=== PATIENT | male | born 1965 | race Caucasian/White ===

== ENCOUNTER 2017-01-06 09:53 | Day surgery (SDC) | payer OTHER ==
[2017-01-05 13:12] VITALS: BMI 37.8
[2017-01-06] MEDS ORDERED: PROPOFOL 20 ML ONE ×2 (11:30)
[2017-01-06 12:03] VITALS: TEMP 98.5
[2017-01-06 12:46] VITALS: BP 123/74; PULSE 77
--- NOTE | 2017-01-07 14:55 | PATH ---
Surgical Pathology Report Patient Name: REED NOLAN [facility]. Rec. #: [id number] /Age/Gender: 1965 (Age: 51) / M Account: [id number] Location: [facility]-ENDOSCOPY Taken: 01/06/2017 Received: 01/06/2017 Reported: 01/07/2017 Physicians: Boris Ling M.D. Specimen(s) Received A: BX DUODENUM B: BX BODY Clinical History Epigastric pain Gastritis Final Diagnosis A. DUODENUM, BIOPSY: DUODENAL MUCOSA WITH NO PATHOLOGIC CHANGES. NO HISTOLOGIC EVIDENCE OF GLUTEN SENSITIVE ENTEROPATHY (CELIAC SPRUE) IDENTIFIED. B. STOMACH, BODY, BIOPSY: MILD CHRONIC GASTRITIS. IMMUNOSTAIN FOR H. PYLORI IS NEGATIVE. Electronically Signed Abdi Bird M.D. Gross Description A. Received in formalin, labeled "biopsy duodenum" are 2 oneil, irregular portions of soft tissue measuring 0.2 and 0.3 cm. in greatest dimension. The specimens are submitted in toto in one cassette. B. Received in formalin, labeled "biopsy body erythema" are 2 oneil, irregular portions of soft tissue measuring 0.2 and 0.3 cm. in greatest dimension. The specimens are submitted in toto in one cassette. 01/06/201701/06/2017
== END 2017-01-06 13:14 | disposition home or self-care (01) ==
LOC: JASU-ENDO 09:53
PROVIDERS: ATTEND Internal Medicine Gastroenterology
PROC: 0DB68ZX Excision of Stomach, Via Natural or Artificial Opening Endoscopic, Diagnostic (ICD-10-PCS; principal; 2017-01-06 10:30)
DX: K29.50 Unspecified chronic gastritis without bleeding (principal)
CPT/HCPCS: 88305-TC; 88342-TC

== ENCOUNTER 2017-01-13 09:13 | Day surgery (SDC) | payer OTHER ==
[2017-01-13 10:05] VITALS: BMI 37.8
[2017-01-13] MEDS ORDERED: LIDOCAINE HCL/PF 1% SDV 5ML VIAL ONE (10:41)
[2017-01-13] MEDS ORDERED: PROPOFOL 20 ML ONE (10:41)
[2017-01-13 11:29] VITALS: TEMP 97.9
[2017-01-13] MEDS ORDERED: KETOROLAC TROMETHAMINE 30 MG/1 ML VIAL ONE (11:37)
[2017-01-13 12:50] VITALS: BP 137/81; PULSE 74
--- NOTE | 2017-01-14 13:34 | PATH ---
Surgical Pathology Report Patient Name: REED NOLAN [facility]. Rec. #: [id number] /Age/Gender: 1965 (Age: 51) / M Account: [id number] Location: [facility]-ENDOSCOPY Taken: 01/13/2017 Received: 01/13/2017 Reported: 01/14/2017 Physicians: Boris Ling M.D. Specimen(s) Received A: ILEOCECAL VALVE POLYP B: BX PROXIMAL DESCENDING COLON POLYP C: POLYP SIGMOID Clinical History Screening Diverticulosis, polyps Final Diagnosis A. ILEOCECAL VALVE POLYP, POLYPECTOMY: TUBULAR ADENOMA. B. COLON, PROXIMAL DESCENDING, POLYP, BIOPSY: INFLAMMATORY-TYPE POLYP. C. COLON, SIGMOID, POLYP POLYPECTOMY: FRAGMENTS OF TUBULAR ADENOMA. Electronically Signed Raymundo Rapp M.D. Gross Description A. Received in formalin, labeled "ileocecal valve polyp" is a oneil, irregular portion of soft tissue measuring 0.2 cm in greatest dimension. The specimen is submitted in toto in one cassette. B. Received in formalin, labeled "biopsy descending colon polyp proximal" is a oneil, irregular portion of soft tissue measuring 0.2 cm in greatest dimension. The specimen is submitted in toto in one cassette. C. Received in formalin, labeled "sigmoid polyp" are 2 oneil, polypoid portions of soft tissue measuring 0.4 and 0.7 cm in greatest dimension. The specimens are submitted in toto in one cassette. 01/13/2017 saudi01/13/2017
== END 2017-01-13 13:00 | disposition home or self-care (01) ==
LOC: JASU-ENDO 09:13
PROVIDERS: ATTEND Internal Medicine Gastroenterology
PROC: 0DBM8ZX Excision of Descending Colon, Via Natural or Artificial Opening Endoscopic, Diagnostic (ICD-10-PCS; 2017-01-13)
PROC: 0DBC8ZX Excision of Ileocecal Valve, Via Natural or Artificial Opening Endoscopic, Diagnostic (ICD-10-PCS; principal; 2017-01-13 10:00)
DX: Z12.11 Encounter for screening for malignant neoplasm of colon (principal); D12.4 Benign neoplasm of descending colon; K63.5 Polyp of colon; K57.30 Diverticulosis of large intestine without perforation or abscess without bleeding
CPT/HCPCS: 88305-TC

== ENCOUNTER 2018-05-05 12:42 | Observation (INO) | payer OTHER ==
--- NOTE | 2018-05-05 13:04 | PDOC ---
History of Present Illness - General Chief Complaint: Blood Sugar Problem Stated Complaint: SOB, DEHYDRATION, BACK PAIN - History of Present Illness Initial Comments: 52 year old male with PMH of HTN, renal stones, and NIDDM presenting with fatigue, frequent urination, increased thirst, uncontrolled blood sugars, and intermittent right sided positional flank pain/ LBP for the past few weeks. For the past few week his blood sugars have been in the 200-300 range consistently despite using his oral medications and he has been very thirsty with very frequent urination and concomitant disturbed sleep because of hourly urination. He also had a right sided "kidney" pain that is positional, particularly when he lays on his left side. He also complains of a shortness of breath with exertion along the same period of time. He does not have urinary hesitation, dysuria, urinary color change, or other urinary symptoms. Denies leg swelling, fevers, chills, nausea, vomiting, diarrhea, constipation, chest pain, headache, or other symptoms. 05/05/18 13:27 Past History - Past Medical History Allergies/Adverse Reactions: Allergies Allergy/AdvReac Type Severity Reaction Status Date / Time No Known Drug Allergies Allergy Verified 05/05/18 12:48 Home Medications: Ambulatory Orders Tamsulosin HCl [Flomax -] 0.4 mg PO DAILY #7 cap.er.24h 11/05/12 Allopurinol [Zyloprim -] 300 mg PO DAILY 05/25/15 Atorvastatin Ca [Lipitor] 10 mg PO DAILY 05/25/15 Glyburide 5 mg PO BID 05/25/15 Lisinopril [Prinivil] 20 mg PO DAILY 05/25/15 Omeprazole [Prilosec (RX)] 40 mg PO DAILY 05/25/15 Oxybutynin Chloride 5 mg PO DAILY 04/11/16 Potassium Citrate [Potassium Citrate ER] 10 meq PO BID 04/11/16 Sertraline HCl [Zoloft -] 25 mg PO DAILY 04/11/16 Sitagliptin Phos/Metformin HCl [Janumet 50-1,000 mg Tablet] 1 each PO BID Anemia: No Asthma: No Cancer: No Cardiac Disorders: No CVA: No COPD: No CHF: No Dementia: No Diabetes: Yes GI Disorders: No Disorders: Yes (KIDNEY STONES X7) HTN: Yes Hypercholesterolemia: No Liver Disease: No Seizures: No Thyroid Disease: No - Surgical History Abdominal Surgery: No Appendectomy: No Cardiac Surgery: No Lung Surgery: No Neurologic Surgery: No Orthopedic Surgery: No - Immunization History Immunization Up to Date: Yes - Suicide/Smoking/Psychosocial Hx Smoking Status: Yes Smoking History: Never smoked Have you smoked in the past 12 months: Yes Number of Cigarettes Smoked Daily: 20 Information on smoking cessation initiated: No 'Breaking Loose' booklet given: 01/13/17 Hx Alcohol Use: No Drug/Substance Use Hx: No Substance Use Type: Alcohol Hx Substance Use Treatment: No Review of Systems - Review of Systems Constitutional: No: Chills, Diaphoresis, Fever, Loss of Appetite HEENTM: No: Blurred Vision, Double Vision Respiratory: Yes: Shortness of Breath, SOB with Exertion. No: Cough, Productive cough Cardiac (ROS): No: Chest Pain, Edema ABD/GI: No: Diarrhea, Nausea, Vomiting : Yes: Frequency. No: Burning, Dysuria, Discharge Musculoskeletal: No: Back Pain, Joint Pain Integumentary: No: Bruising, Change in Color, Lumps, Pallor Neurological: No: Headache, Numbness, Paresthesia Endocrine: Yes: Increased Thirst, Increased Urine *Physical Exam - Vital Signs Last Vital Signs Temp Pulse Resp BP Pulse Ox 97.6 F 86 18 117/6 95 05/05/18 12:48 05/05/18 12:48 05/05/18 12:48 05/05/18 12:48 05/05/18 12:48 ED Treatment Course - LABORATORY CBC & Chemistry Diagram: 05/05/18 13:00 05/05/18 13:00 *DC/Admit/Observation/Transfer - Referrals Referrals: Gen Lopez MD [Primary Care Provider] - - Patient Instructions - Post Discharge Activity
[2018-05-05 14:16] LABS: URINE APPEARANCE SLCLOUDY; URINE BILIRUBIN NEGATIVE (<2.0 mg/dL); URINE COLOR AMBER; URINE GLUCOSE (UA) 3+ (NEGATIVE); URINE KETONE TRACE (NEGATIVE); URINE LEUK ESTERASE NEGATIVE (NEGATIVE); URINE NITRITE NEGATIVE (NEGATIVE)
[2018-05-05 14:17] LABS: URINE PROTEIN 1+ (NEGATIVE)
[2018-05-05 14:18] LABS: BASO % 0.9 % (0-2.0); EOS % 0.9 % (0-4.5); HEMATOCRIT 41.1 % (35.4-49); LYMPH % 17.5 % (8-40); MCH 30.3 pg (25.7-33.7); MEAN PLT VOLUME 8.4 fl (7.5-11.1); MONO % 7.1 % (3.8-10.2); NEUT % 73.6 % (42.8-82.8); PLATELET COUNT 247 K/MM3 (134-434); RBC 4.62 M/mm3 (4.00-5.60); RDW 14.2 % (11.9-15.9); WHITE BLOOD COUNT 5.8 K/mm3 (4.0-10.0)
[2018-05-05] MEDS ORDERED: FUROSEMIDE 40 MG TABLET (FP) ONE (14:22)
[2018-05-05 14:32] LABS: EPI CELLS RARE /HPF (FEW); URINE HYALINE CAST 65 /lpf
[2018-05-05 14:45] LABS: ALBUMIN 3.6 g/dl (3.4-5.0); ANION GAP 10 (8-16); BILIRUBIN,TOTAL 0.4 mg/dL (0.2-1.0); BLOOD UREA NITROGEN 27 mg/dL (7-18); CALCIUM 8.4 mg/dL (8.5-10.1); CHLORIDE 99 mmol/L (98-107); CO2 25 mmol/L (21-32); CREATININE 1.3 mg/dL (0.7-1.3); POTASSIUM 5.1 mmol/L (3.5-5.1); SGOT/AST 35 U/L (15-37); SGPT/ALT 70 U/L (12-78); SODIUM 134 mmol/L (136-145)
[2018-05-05 14:54] LABS: ALK PHOS 92 U/L (45-117); N-TERMINAL BNP 15.18 pg/ml (5-125)
[2018-05-05 15:11] LABS: GLUCOSE,RANDOM 422 mg/dL (74-106)
[2018-05-05] MEDS ORDERED: SODIUM CHLORIDE 0.9% 500 ML INFUS.BAG IV ONE ×2 (15:12→16:03)
--- NOTE | 2018-05-05 16:32 | PDOC ---
Attending Attestation - Resident Resident Name: Laurence Boles - ED Attending Attestation I have performed the following: I have examined & evaluated the patient, The case was reviewed & discussed with the resident, I agree w/resident's findings & plan, Exceptions are as noted - HPI HPI: 05/05/18 16:29 "The patient is a 52 year old male, with a significant past medical history of NIDDM, hypertension, and kidney stones, who presents to the emergency department with urinary frequency, fatigue, and increased thirst over the past month. The patient reports he has had difficulty sleeping secondary to urinary frequency. Patient also reports right sided flank pain that is exacerbated when lying on his left side. He denies any dysuria, hematuria, hesitation, changes in urine color, or urinary incontinence. He denies any fever, chills, cough, headache, or dizziness. He denies any abdominal pain, nausea, vomiting, diarrhea , or constipation. He denies any chest pain, shortness of breath, diaphoresis, or palpitations. Pt notes that his sugars have been high recently, ranging from 200-300. He reports compliance with his medications. Allergies: NKDA " - Physicial Exam PE: 05/05/18 16:31 "GENERAL: Awake, alert, and fully oriented, in no acute distress. HEAD: No signs of trauma EYES: PERRLA, EOMI, sclera anicteric, conjunctiva clear ENT: Auricles normal inspection, hearing grossly normal, nares patent, oropharynx clear without exudates. Moist mucosa NECK: Nontender, no stepoffs, Normal ROM, supple, no lymphadenopathy, JVD, or masses LUNGS: Breath sounds equal, clear to auscultation bilaterally. No wheezes, and no crackles HEART: Regular rate and rhythm, normal S1 and S2, no murmurs, rubs or gallops ABDOMEN: Soft, nontender, normoactive bowel sounds. No guarding, no rebound. No masses EXTREMITIES: Normal range of motion, no edema. No clubbing or cyanosis. No cords, erythema, or tenderness NEUROLOGICAL: Cranial nerves II through XII intact. 5/5 strength and sensation in all extremities, Normal speech, normal gait, normal cerebellar function SKIN: Warm, Dry, normal turgor, no rashes or lesions noted. BACK: + R CVAT " - Medical Decision Making 05/05/18 16:31 52 M with R flank pain, urinary frequency, and increased thirst. Likely 2/2 elevated sugars. Will r/o DKA. R flank pain may be 2/2 pyelo vs kidney stone. - Labs, UA, UCx - IVF 05/05/18 17:23 Labs notable for elevated glucose Pt received 2L NS, with persistently elevated fsg Will admit to obs for likely initiation of insulin
--- NOTE | 2018-05-05 18:16 | HP ---
Admitting History and Physical - Admission Chief Complaint: polyuria, dypsia, sob History of Present Illness: This is a 52 year old male with pmhx HTN, kidney stones, DM II, psoriasis, recent dx and treatment of shingles with x1 week vancyclovir who presented after 2 weeks of excessive thirst, urination, and weakness. Patient states his sugars have never been this high and he is compliant with this po anti diabetics. Last night he had lower ext cramping. 2 weeks ago traveled to the . Currently, denies sob, cough, fever, cp, abdominal pain, nausea, vomiting. History Source: Patient Limitations to Obtaining History: No Limitations - Past Medical History Cardiovascular: Yes: HTN Endocrine: Yes: Diabetes Mellitus - Smoking History Smoking history: Never smoked Have you smoked in the past 12 months: Yes Aproximately how many cigarettes per day: 20 - Alcohol/Substance Use Hx Alcohol Use: No History of Substance Use: reports: None - Social History Usual Living Arrangement: Yes: Alone ADL: Independent Occupation: [employer] History of Recent Travel: Yes ( 2 weeks ago ) Home Medications - Allergies Allergies/Adverse Reactions: Allergies Allergy/AdvReac Type Severity Reaction Status Date / Time No Known Drug Allergies Allergy Verified 05/05/18 12:48 - Home Medications Home Medications: Ambulatory Orders Tamsulosin HCl [Flomax -] 0.4 mg PO DAILY #7 cap.er.24h 11/05/12 Allopurinol [Zyloprim -] 300 mg PO DAILY 05/25/15 Atorvastatin Ca [Lipitor] 10 mg PO DAILY 05/25/15 Glyburide 5 mg PO BID 05/25/15 Lisinopril [Prinivil] 20 mg PO DAILY 05/25/15 Omeprazole [Prilosec (RX)] 40 mg PO DAILY 05/25/15 Oxybutynin Chloride 5 mg PO DAILY 04/11/16 Potassium Citrate [Potassium Citrate ER] 10 meq PO BID 04/11/16 Sertraline HCl [Zoloft -] 25 mg PO DAILY 04/11/16 Sitagliptin Phos/Metformin HCl [Janumet 50-1,000 mg Tablet] 1 each PO BID Review of Systems - Review of Systems Constitutional: reports: Weakness Eyes: reports: No Symptoms HENT: reports: No Symptoms Neck: reports: No Symptoms Cardiovascular: reports: Shortness of Breath Respiratory: reports: SOB Gastrointestinal: reports: No Symptoms Genitourinary: reports: Frequency Musculoskeletal: reports: Muscle Cramps Integumentary: reports: Blister (abdomen) Neurological: reports: No Symptoms Endocrine: reports: Increased Thirst Hematology/Lymphatic: reports: No Symptoms Psychiatric: reports: No Symptoms Physical Examination Vital Signs: Vital Signs Temperature 97.6 F 05/05/18 12:48 Pulse Rate 86 05/05/18 12:48 Respiratory Rate 18 05/05/18 12:48 Blood Pressure 117/60 05/05/18 12:48 O2 Sat by Pulse Oximetry (%) 95 05/05/18 12:48 Constitutional: Yes: No Distress Eyes: Yes: Conjunctiva Clear HENT: Yes: Atraumatic Neck: Yes: Supple Cardiovascular: Yes: Regular Rate and Rhythm, S1, S2 Respiratory: Yes: Regular, CTA Bilaterally Gastrointestinal: Yes: Normal Bowel Sounds, Soft Renal/: Yes: WNL Musculoskeletal: Yes: WNL Extremities: Yes: WNL Edema: No Integumentary: Yes: Other (abdminal red blister lesions dried, non tender upper and lower ext psoriasis) Neurological: Yes: Alert, Oriented, Cran Nerves II-XII Intact ...Motor Strength: WNL Psychiatric: Yes: Alert, Oriented Labs: CBC, BMP 05/05/18 13:00 05/05/18 13:00 Imaging - Results X-ray: Report Reviewed, Image Reviewed Ultrasound: Report Reviewed Problem List - Problems (1) Diabetes mellitus Code(s): E11.9 - TYPE 2 DIABETES MELLITUS WITHOUT COMPLICATIONS (2) Hyperglycemia Code(s): R73.9 - HYPERGLYCEMIA, UNSPECIFIED (3) HTN (hypertension) Code(s): I10 - ESSENTIAL (PRIMARY) HYPERTENSION (4) Psoriasis Code(s): L40.9 - PSORIASIS, UNSPECIFIED Assessment/Plan Assessment: 52 year old male admitted with hyperglycemia Plan: 1. DM II, hyperglycemia - s/p 2L in ED - start 1/2 ns 75cc/hr - Hold po antidiabetics for now - Will start novolog sliding scale - Will start low dose levemir 5units, pt insulin naive, however will likely require more - Blood sugar check ACHS - TSH wnl - UA neg - Endocrinology consult 2. HTN - Controlled - Lisinopril 20mg daily 3. Gout - Cont allopurinol 4. hx of nephrolithiasis/bph? - Flomax 5. DVT - Heparin sq Visit type - Emergency Visit Emergency Visit: Yes ED Registration Date: 05/05/18 Care time: The patient presented to the Emergency Department on the above date and was hospitalized for further evaluation of their emergent condition. - New Patient This patient is new to me today: Yes Date on this admission: 05/06/18 - Critical Care Critical Care patient: No Hospitalist Screening - Colonoscopy Questionnaire Colonoscopy Questionnaire: Colonoscopy Questionnaire - Patient: 50 - 75 years old and never had a screening colonoscopy: Unknown History of colon or rectal polyps, or CA: Unknown History of IBD, Crohn's disease or UC: Unknown History of abdominal radiation therapy as a child: Unknown - Relative: 1 with colon or rectal CA, or polyps at age 60 or younger: Unknown Colon or rectal CA diagnosed at age 45 or younger: Unknown Multiple relatives with colon or rectal CA: Unknown - Outcome: Screening Result: Negative Screen
[2018-05-05] MEDS: SODIUM CHLORIDE 0.45% 1,000 ML IV SCH (18:51)
[2018-05-05] MEDS ORDERED: INSULIN (NOVOLOG) ASPART 100 UNITS/ML 10ML VIAL ONE (21:10)
[2018-05-05] MEDS: HEPARIN NA (PORCINE) 5,000 UNITS/ML 1ML VIAL SQ SCH (21:11)
[2018-05-05] MEDS: ATORVASTATIN CA 10 MG TABLET (FP) PO SCH (21:11)
[2018-05-05] MEDS: INSULIN SLIDING SCALE (NOVOLOG) 1 VIAL SQ SCH (21:12)
[2018-05-05] MEDS ORDERED: INSULIN (LEVEMIR) 100 UNITS/ML UNITS SQ SCH (22:00)
[2018-05-06] MEDS: HEPARIN NA (PORCINE) 5,000 UNITS/ML 1ML VIAL SQ SCH ×3 (06:30→21:12)
[2018-05-06 07:01] VITALS: BMI 36.3
[2018-05-06] MEDS: INSULIN SLIDING SCALE (NOVOLOG) 1 VIAL SQ SCH ×3 (07:03→17:30)
[2018-05-06 07:41] LABS: ALBUMIN 2.9 g/dl (3.4-5.0); ANION GAP 6 (8-16); BLOOD UREA NITROGEN 18 mg/dL (7-18); CALCIUM 7.9 mg/dL (8.5-10.1); CHLORIDE 104 mmol/L (98-107); CO2 27 mmol/L (21-32); CREATININE 0.7 mg/dL (0.7-1.3); GLUCOSE,RANDOM 206 mg/dL (74-106); MAGNESIUM 1.7 mg/dL (1.8-2.4); PHOSPHOROUS 2.6 mg/dL (2.5-4.9); POTASSIUM 4.6 mmol/L (3.5-5.1); SGOT/AST 36 U/L (15-37); SGPT/ALT 57 U/L (12-78); SODIUM 137 mmol/L (136-145)
[2018-05-06 07:43] LABS: ALK PHOS 73 U/L (45-117); BILIRUBIN,TOTAL 0.4 mg/dL (0.2-1.0); EOS % 1.1 % (0-4.5); HEMATOCRIT 37.5 % (35.4-49); HEMOGLOBIN 12.8 GM/dL (11.7-16.9); LYMPH % 24.1 % (8-40); MCH 30.2 pg (25.7-33.7); MEAN PLT VOLUME 7.9 fl (7.5-11.1); MONO % 6.4 % (3.8-10.2); NEUT % 67.4 % (42.8-82.8); PLATELET COUNT 198 K/MM3 (134-434); RBC 4.22 M/mm3 (4.00-5.60); RDW 14.1 % (11.9-15.9); TOT PROT 5.8 g/dl (6.4-8.2); WHITE BLOOD COUNT 3.9 K/mm3 (4.0-10.0)
[2018-05-06] MEDS ORDERED: PT OWN MED DRAWER 7, Y5N ONE (10:03)
[2018-05-06] MEDS: TAMSULOSIN HCL 0.4 MG CAP.ER.24H (FP) PO SCH (10:14)
[2018-05-06] MEDS: OXYBUTYNIN CHLORIDE 5 MG TABLET PO SCH (10:14)
[2018-05-06] MEDS: SODIUM CHLORIDE 0.45% 1,000 ML IV SCH (10:15)
[2018-05-06] MEDS: LISINOPRIL 20 MG TABLET (FP) PO SCH (10:15)
[2018-05-06] MEDS: ALLOPURINOL 300 MG TABLET (FP) PO SCH (11:13)
[2018-05-06] MEDS: SERTRALINE HCL 25 MG TABLET (FP) PO SCH (11:14)
[2018-05-06] MEDS: ACETAMINOPHEN 325 MG TABLET (FP) PO PRN ×2 (12:02→21:10)
[2018-05-06] MEDS ORDERED: INSULIN (NOVOLOG) ASPART 100 UNITS/ML 10ML VIAL ONE (12:06)
--- NOTE | 2018-05-06 13:20 | CONSULT ---
Consult Consult Specialty:: Endocrinology Referred by:: Nelli Main Reason for Consultation:: Hyperglycemia - History of Present Illness Chief Complaint: Polyuria, polydipsia History of Present Illness: This is a 52 year old male with PMH of HTN, renal stones, and NIDDM for about 5 years on oral antidiabetic agents presented with fatigue, frequent urination, increased thirst, uncontrolled blood sugars, and intermittent right sided positional flank pain/ LBP for the past few weeks. For the past few week his blood sugars have been in the 200-300 range consistently despite using his oral medications and he has been very thirsty with very frequent urination and concomitant disturbed sleep because of hourly urination. Gives h/o treatment of varicella zoster recently. Didn't take any steroids. - History Source History Provided By: Patient, Medical Record - Past Medical History Cardio/Vascular: Yes: HTN Endocrine: Yes: Diabetes Mellitus - Alcohol/Substance Use Hx Alcohol Use: No History of Substance Use: reports: None - Smoking History Smoking history: Never smoked Have you smoked in the past 12 months: Yes Aproximately how many cigarettes per day: 20 - Social History ADL: Independent Occupation: [employer] History of Recent Travel: Yes ( 2 weeks ago ) Home Medications - Allergies Allergies/Adverse Reactions: Allergies Allergy/AdvReac Type Severity Reaction Status Date / Time No Known Drug Allergies Allergy Verified 05/05/18 12:48 - Home Medications Home Medications: Ambulatory Orders Tamsulosin HCl [Flomax -] 0.4 mg PO DAILY #7 cap.er.24h 11/05/12 Allopurinol [Zyloprim -] 300 mg PO DAILY 05/25/15 Atorvastatin Ca [Lipitor] 10 mg PO DAILY 05/25/15 Glyburide 5 mg PO BID 05/25/15 Lisinopril [Prinivil] 20 mg PO DAILY 05/25/15 Omeprazole [Prilosec (RX)] 40 mg PO DAILY 05/25/15 Oxybutynin Chloride 5 mg PO DAILY 04/11/16 Potassium Citrate [Potassium Citrate ER] 10 meq PO BID 04/11/16 Sertraline HCl [Zoloft -] 25 mg PO DAILY 04/11/16 Sitagliptin Phos/Metformin HCl [Janumet 50-1,000 mg Tablet] 1 each PO BID Family Disease History - Family Disease History Family Disease History: Diabetes: Father Review of Systems - Review of Systems Constitutional: reports: Malaise Eyes: reports: No Symptoms HENT: reports: No Symptoms Neck: reports: No Symptoms Cardiovascular: reports: No Symptoms Respiratory: reports: No Symptoms Gastrointestinal: reports: No Symptoms Genitourinary: reports: Frequency, Other (polyuria, polydipsia,nocturia) Breasts: reports: No Symptoms Reported Musculoskeletal: reports: No Symptoms Integumentary: reports: No Symptoms Neurological: reports: No Symptoms Physical Exam Vital Signs: Vital Signs Temperature 98.2 F 05/06/18 10:00 Pulse Rate 69 05/06/18 10:00 Respiratory Rate 18 05/06/18 10:00 Blood Pressure 110/70 05/06/18 10:00 O2 Sat by Pulse Oximetry (%) 98 05/06/18 10:00 Constitutional: Yes: No Distress, Calm Eyes: Yes: Conjunctiva Clear, EOM Intact HENT: Yes: Atraumatic, Normocephalic Neck: Yes: Supple, Trachea Midline Cardiovascular: Yes: Regular Rate and Rhythm Respiratory: Yes: Regular, CTA Bilaterally Gastrointestinal: Yes: Normal Bowel Sounds, Soft Musculoskeletal: Yes: WNL Extremities: Yes: WNL Edema: No Neurological: Yes: Alert, Oriented Labs: CBC, BMP 05/06/18 06:00 05/06/18 06:00 Assessment/Plan AP; T2DM uncontrolled: Admission blood sugar 422 HTN Gout Nephrolithiasis Nutrition consult BGM QACHS Levemir 10 units daily Novolog SS coverage Januvia 100mg QD Metformin 500mg BID Check A1c Will F/u
--- NOTE | 2018-05-06 15:04 | PN ---
Progress Note, Physician Chief Complaint: Mr Gonzáles says he is doing well today. No cp, sob, n/v. - Current Medication List Current Medications: Active Medications Acetaminophen (Tylenol -) 650 mg PO Q4H PRN PRN Reason: PAIN LEVEL 1-5 Last Admin: 05/06/18 12:02 Dose: 650 mg Allopurinol (Zyloprim -) 300 mg PO DAILY [facility] Last Admin: 05/06/18 11:13 Dose: 300 mg Atorvastatin Calcium (Lipitor -) 10 mg PO HS [facility] Last Admin: 05/05/18 21:11 Dose: 10 mg Heparin Sodium (Porcine) (Heparin -) 5,000 unit SQ TID [facility] Last Admin: 05/06/18 06:30 Dose: 5,000 unit Sodium Chloride (1/2 Normal Saline) 1,000 mls @ 75 mls/hr IV ASDIR [facility] Last Admin: 05/06/18 10:15 Dose: 75 mls/hr Insulin Aspart (Novolog Vial Sliding Scale -) 1 vial SQ [facility]; Protocol Last Admin: 05/06/18 11:56 Dose: 4 units Insulin Detemir (Levemir Vial) 10 units SQ [facility] Lisinopril (Prinivil) 20 mg PO DAILY [facility] Last Admin: 05/06/18 10:15 Dose: 20 mg Oxybutynin Chloride (Ditropan -) 5 mg PO DAILY [facility] Last Admin: 05/06/18 10:14 Dose: 5 mg Sertraline HCl (Zoloft -) 25 mg PO DAILY [facility] Last Admin: 05/06/18 11:14 Dose: 25 mg Tamsulosin HCl (Flomax -) 0.4 mg PO DAILY@0830 [facility] Last Admin: 05/06/18 10:14 Dose: 0.4 mg - Objective Vital Signs: Vital Signs Temperature 36.9 C 05/06/18 14:00 Pulse Rate 84 05/06/18 14:00 Respiratory Rate 18 05/06/18 14:00 Blood Pressure 119/57 05/06/18 14:00 O2 Sat by Pulse Oximetry (%) 98 05/06/18 10:00 Constitutional: Yes: No Distress, Calm, Obese Cardiovascular: Yes: Regular Rate and Rhythm. No: Gallop, Murmur, Rub Respiratory: Yes: Regular, CTA Bilaterally. No: Rales, Rhonchi, Wheezes Gastrointestinal: Yes: Normal Bowel Sounds, Soft. No: Distention, Tenderness Extremities: Yes: WNL Edema: No Labs: CBC, BMP 05/06/18 06:00 05/06/18 06:00 Problem List - Problems (1) Diabetes mellitus Assessment/Plan: -endocrinology consulted and awaiting recommendations -continue levemir and SSI -evaluate insulin requirement -unclear if secondary to stress vs transition to needing insulin -check HgbA1c Code(s): E11.9 - TYPE 2 DIABETES MELLITUS WITHOUT COMPLICATIONS (2) HTN (hypertension) Assessment/Plan: -controlled -continue lisinopril Code(s): I10 - ESSENTIAL (PRIMARY) HYPERTENSION (3) BPH (benign prostatic hyperplasia) Assessment/Plan: -continue ditropan and flomax Code(s): N40.0 - BENIGN PROSTATIC HYPERPLASIA WITHOUT LOWER URINRY TRACT SYMP (4) Gout Assessment/Plan: -continue allopurinol Code(s): M10.9 - GOUT, UNSPECIFIED (5) HLD (hyperlipidemia) Assessment/Plan: -continue statin Code(s): E78.5 - HYPERLIPIDEMIA, UNSPECIFIED
--- NOTE | 2018-05-06 16:21 | EKG ---
Test Reason : Blood Pressure : / mmHG Vent. 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
[2018-05-06] MEDS: ATORVASTATIN CA 10 MG TABLET (FP) PO SCH (21:10)
[2018-05-06] MEDS ORDERED: INSULIN (LEVEMIR) 100 UNITS/ML UNITS SQ SCH (22:00)
[2018-05-06] MEDS ORDERED: INSULIN SLIDING SCALE (NOVOLOG) 1 VIAL SQ SCH (22:00)
[2018-05-07] MEDS: HEPARIN NA (PORCINE) 5,000 UNITS/ML 1ML VIAL SQ SCH (06:09)
[2018-05-07] MEDS: INSULIN SLIDING SCALE (NOVOLOG) 1 VIAL SQ SCH ×2 (06:11→12:13)
[2018-05-07] MEDS ORDERED: sitaGLIPtin PHOSPHATE 50 MG TABLET PO SCH (07:00)
[2018-05-07] MEDS ORDERED: metFORMIN HCL 500 MG TABLET (FP) PO SCH (07:00)
[2018-05-07 08:00] LABS: BASO % 0.8 % (0-2.0); EOS % 0.3 % (0-4.5); HEMATOCRIT 38.5 % (35.4-49); HEMOGLOBIN 13.4 GM/dL (11.7-16.9); LYMPH % 20.2 % (8-40); MCH 30.3 pg (25.7-33.7); MCHC 34.6 g/dl (32.0-35.9); MEAN CELL VOLUME 87.5 fl (80-96); MEAN PLT VOLUME 7.8 fl (7.5-11.1); MONO % 8.9 % (3.8-10.2); NEUT % 69.8 % (42.8-82.8); PLATELET COUNT 190 K/MM3 (134-434); RBC 4.41 M/mm3 (4.00-5.60); RDW 13.8 % (11.9-15.9); WHITE BLOOD COUNT 3.9 K/mm3 (4.0-10.0)
[2018-05-07 08:02] LABS: ANION GAP 7 (8-16); BLOOD UREA NITROGEN 12 mg/dL (7-18); CALCIUM 8.3 mg/dL (8.5-10.1); CHLORIDE 101 mmol/L (98-107); CO2 27 mmol/L (21-32); CREATININE 0.7 mg/dL (0.7-1.3); GLUCOSE,RANDOM 211 mg/dL (74-106); MAGNESIUM 1.6 mg/dL (1.8-2.4); PHOSPHOROUS 2.6 mg/dL (2.5-4.9); POTASSIUM 4.7 mmol/L (3.5-5.1); SODIUM 135 mmol/L (136-145)
--- NOTE | 2018-05-07 09:01 | PN ---
Progress Note (short form) - Note Progress Note: Denies any complaints Eager to go home Vital Signs Period Temp Pulse Resp BP Sys/Moyer Pulse Ox Last 24 Hr 98.2 F-98.8 F 64-84 18-18 109-143/34-78 97-98 PE: AOx3 Neck: SUpple NO JVD HEENT: PERRL, EOMI Lungs: CTA CVS: S1S2 Abd: Benign Ext: No edema CMP Sodium 135 mmol/L (136-145) L 05/07/18 06:30 Potassium 4.7 mmol/L (3.5-5.1) 05/07/18 06:30 Chloride 101 mmol/L (98-107) 05/07/18 06:30 Carbon Dioxide 27 mmol/L (21-32) 05/07/18 06:30 Anion Gap 7 (8-16) L 05/07/18 06:30 BUN 12 mg/dL (7-18) 05/07/18 06:30 Creatinine 0.7 mg/dL (0.7-1.3) 05/07/18 06:30 Creat Clearance w eGFR > 60 (>60) 05/07/18 06:30 POC Glucometer 230 UNITS (80-120) 05/07/18 06:08 Random Glucose 211 mg/dL (74-106) H 05/07/18 06:30 Calcium 8.3 mg/dL (8.5-10.1) L 05/07/18 06:30 Phosphorus 2.6 mg/dL (2.5-4.9) 05/07/18 06:30 Magnesium 1.6 mg/dL (1.8-2.4) L 05/07/18 06:30 Total Bilirubin 0.4 mg/dL (0.2-1.0) 05/06/18 06:00 AST 36 U/L (15-37) 05/06/18 06:00 ALT 57 U/L (12-78) 05/06/18 06:00 Alkaline Phosphatase 73 U/L (45-117) D 05/06/18 06:00 Creatine Kinase 84 IU/L (39-308) 05/05/18 19:53 Troponin I < 0.02 ng/ml (0.00-0.05) 05/05/18 19:53 B-Natriuretic Peptide 15.18 pg/ml (5-125) 05/05/18 13:00 Total Protein 5.8 g/dl (6.4-8.2) L 05/06/18 06:00 Albumin 2.9 g/dl (3.4-5.0) L 05/06/18 06:00 TSH 1.00 uIU/ml (0.358-3.74) 05/05/18 13:00 Current Medications Generic Name Dose Route Start Last Admin Trade Name Teresa PRN Reason Stop Dose Admin Acetaminophen 650 mg 05/05/18 18:30 05/06/18 21:10 Tylenol - PO 650 mg Q4H PRN Administration PAIN LEVEL 1-5 Allopurinol 300 mg 05/06/18 10:00 05/06/18 11:13 Zyloprim - PO 300 mg DAILY [facility]A Administration Atorvastatin Calcium 10 mg 05/05/18 22:00 05/06/18 21:10 Lipitor - PO 10 mg HS [facility]A Administration Heparin Sodium (Porcine) 5,000 unit 05/05/18 22:00 05/07/18 06:09 Heparin - SQ 5,000 unit TID [facility] Administration Insulin Aspart 1 vial 05/06/18 22:00 05/06/18 21:16 Novolog Vial Sliding Scale - SQ 4 units HS [facility] Administration Protocol Insulin Aspart 1 vial 05/07/18 07:00 05/07/18 06:11 Novolog Vial Sliding Scale - SQ 4 units TIDAC [facility] Administration Protocol Insulin Detemir 10 units 05/06/18 22:00 05/06/18 21:17 Levemir Vial SQ 10 units HS [facility] Administration Lisinopril 20 mg 05/06/18 10:00 05/06/18 10:15 Prinivil PO 20 mg DAILY [facility] Administration Metformin HCl 500 mg 05/07/18 07:00 05/07/18 06:11 Glucophage - PO 500 mg BID@0700,1630 [facility] Administration Oxybutynin Chloride 5 mg 05/06/18 10:00 05/06/18 10:14 Ditropan - PO 5 mg DAILY [facility] Administration Sertraline HCl 25 mg 05/06/18 10:00 05/06/18 11:14 Zoloft - PO 25 mg DAILY [facility] Administration Sitagliptin Phosphate 100 mg 05/07/18 07:00 05/07/18 06:11 Januvia - PO 100 mg DAILY@0700 [facility] Administration Tamsulosin HCl 0.4 mg 05/06/18 08:30 05/06/18 10:14 Flomax - PO 0.4 mg DAILY@0830 [facility] Administration AP: T2DM with hyperglycemia Increase Levemir 15 units daily Januvia 100mg QD Metformin 500mg BID Novolog premeals Teach pt to self inject Insulin F/U in the office in a week after discharge HTN HLD
[2018-05-07] MEDS ORDERED: PT OWN MED DRAWER 7, Y5N ONE (09:50)
[2018-05-07] MEDS: LISINOPRIL 20 MG TABLET (FP) PO SCH (10:00)
[2018-05-07] MEDS: ALLOPURINOL 300 MG TABLET (FP) PO SCH (10:00)
[2018-05-07] MEDS: OXYBUTYNIN CHLORIDE 5 MG TABLET PO SCH (10:00)
[2018-05-07] MEDS: TAMSULOSIN HCL 0.4 MG CAP.ER.24H (FP) PO SCH (10:00)
[2018-05-07] MEDS: SERTRALINE HCL 25 MG TABLET (FP) PO SCH (10:01)
[2018-05-07 11:29] VITALS: BP 113/81; PULSE 85; TEMP 98.2
--- NOTE | 2018-05-07 12:32 | DS ---
Physical Examination Vital Signs: Vital Signs Temperature 36.8 C 05/07/18 10:00 Pulse Rate 85 05/07/18 10:00 Respiratory Rate 18 05/07/18 10:00 Blood Pressure 113/81 05/07/18 10:00 O2 Sat by Pulse Oximetry (%) 98 05/07/18 10:00 Labs: CBC, BMP 05/07/18 06:30 05/07/18 06:30 Discharge Summary Reason For Visit: HYPERGLYCEMIA Current Active Problems BPH (benign prostatic hyperplasia) (Acute) Diabetes mellitus (Acute) Gout (Acute) HLD (hyperlipidemia) (Acute) HTN (hypertension) (Acute) Hyperglycemia (Acute) Psoriasis (Acute) Condition: Good - Instructions Diet, Activity, Other Instructions: diabetic diet. resume previous activity. Referrals: Gen Lopez MD [Primary Care Provider] - Mayte Alex MD [Staff Physician] - Disposition: HOME - Home Medications Comprehensive Discharge Medication List: Ambulatory Orders Tamsulosin HCl [Flomax -] 0.4 mg PO DAILY #7 cap.er.24h 11/05/12 Allopurinol [Zyloprim -] 300 mg PO DAILY 05/25/15 Atorvastatin Ca [Lipitor] 10 mg PO DAILY 05/25/15 Lisinopril [Prinivil] 20 mg PO DAILY 05/25/15 Oxybutynin Chloride 5 mg PO DAILY 04/11/16 Sertraline HCl [Zoloft -] 25 mg PO DAILY 04/11/16 Insulin Aspart [Novolog Flexpen] 100 unit SQ AC #1 insuln.pen 05/07/18 Insulin Detemir [Levemir Flextouch] 100 unit SQ HS #1 insuln.pen 05/07/18 Sitagliptin Phosphate [Januvia -] 100 mg PO DAILY@0700 #60 tablet 05/07/18 metFORMIN HCL [Glucophage -] 500 mg PO BID@0700,1630 #60 tablet 05/07/18
== END 2018-05-07 14:12 | disposition home or self-care (01) ==
LOC: JER 12:42 → JERBED 18:01 → J8W 20:37
PROVIDERS: ADMIT Internal Medicine; ATTEND Internal Medicine
PROC: 3E013VG Introduction of Insulin into Subcutaneous Tissue, Percutaneous Approach (ICD-10-PCS; principal; 2018-05-05)
PROC: 3E0337Z Introduction of Electrolytic and Water Balance Substance into Peripheral Vein, Percutaneous Approach (ICD-10-PCS; 2018-05-05)
DX: E11.65 Type 2 diabetes mellitus with hyperglycemia (principal); I10 Essential (primary) hypertension; L40.9 Psoriasis, unspecified; M10.9 Gout, unspecified; E78.5 Hyperlipidemia, unspecified; N40.0 Benign prostatic hyperplasia without lower urinary tract symptoms; Z79.84 Long term (current) use of oral hypoglycemic drugs; Z87.442 Personal history of urinary calculi
CPT/HCPCS: 36415; 71045-TC-FY; 76775-TC; 80048; 80053; 81003; 81015; 82550; 82962; 83036; 83735; 83880; 84100; 84443; 84484; 85025; 87086; 93005; 93010; 99284-25; G0378; J1644